=== PATIENT | male | born 1960 | race Caucasian/White ===

== ENCOUNTER 2016-11-12 | Outpatient (CLI) | payer BC | END 2016-11-12 13:12 | disposition critical access hospital (66) ==

== ENCOUNTER 2016-11-12 13:44 | Emergency (ER) | payer BC ==
[2016-11-12] MEDS ORDERED: TETANUS/DIPHTHERIA/PERTUSSIS 0.5 ML SYRINGE IM ONE ×2 (14:53→15:02)
[2016-11-12] MEDS ORDERED: IBUPROFEN 600 MG TABLET PO ONE (15:07)
[2016-11-12] MEDS ORDERED: IBUPROFEN 600 MG TABLET PO STA (15:20)
== END 2016-11-12 15:25 | disposition home or self-care (01) ==
DX: S61.243A Puncture wound with foreign body of left middle finger without damage to nail, initial encounter (principal); W45.0XXA Nail entering through skin, initial encounter; W20.8XXA Other cause of strike by thrown, projected or falling object, initial encounter; Y93.H3 Activity, building and construction; Y92.89 Other specified places as the place of occurrence of the external cause; Y99.0 Civilian activity done for income or pay; Z23 Encounter for immunization
CPT/HCPCS: 64455; 90471; 90715; 99282; 99283; A9270

== ENCOUNTER 2019-05-31 12:15 | Outpatient (CLI) | payer OTHER | END 2019-05-31 12:16 | disposition critical access hospital (66) | LOC: EMS 12:15 | PROVIDERS: ATTEND Surgery | DX: R09.89 Other specified symptoms and signs involving the circulatory and respiratory systems (principal) | CPT/HCPCS: A0425; A0429 ==

== ENCOUNTER 2019-05-31 12:49 | Emergency (ER) | payer BC, OTHER ==
[2019-05-31] MEDS ORDERED: hydroCHLOROthiazide 25 MG TABLET PO STA (13:12)
--- NOTE | 2019-05-31 13:13 | ED Physician Documentation ---
History of Present Illness - Stated complaint Stated Complaint: HIGH BP - Chief complaint Chief Complaint: Cardiac - History obtained from History obtained from: Patient - History of Present Illness Timing: Chronic (59-year-old gentleman with remote history of prostate cancer. He is always had high blood pressure but has never been under treatment for it. He says that as long as he can remember every time his blood pressures been checked it has been high. He says that currently he weighs about 225 pounds but several years ago got down to 165. Even then his blood pressure was about 160/80. He also has a history of prostate cancer 10 years ago with I think seeds, it is never been followed up upon. He does not have a regular doctor but has an appointment with a new physician on Tuesday. He denies chest pain, headaches, trouble breathing. 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%" function.) Review of Systems Constitutional: denies: Fever, Chills, Myalgias, Fatigue, Weight Loss Cardiac: denies: Chest pain / pressure, Palpitations, Pedal edema, Calf pain Respiratory: denies: Dyspnea, Cough GI: denies: Abdominal Pain PD PAST MEDICAL HISTORY - Past Medical History Cardiovascular: None Respiratory: None Endocrine/Autoimmune: None - Past Surgical History Past Surgical History: No - Present Medications Home Medications: Ambulatory Orders Medication Instructions Recorded Confirmed hydroCHLOROthiazide 25 mg PO DAILY #30 tablet 05/31/19 [Hydrochlorothiazide] - Allergies Allergies/Adverse Reactions: Allergies Allergy/AdvReac Type Severity Reaction Status Date / Time Sulfa (Sulfonamide Allergy Rash Verified 05/31/19 13:01 Antibiotics) - Social History Does the pt smoke?: No Smoking Status: Never smoker Does the pt drink ETOH?: No Does the pt have substance abuse?: No - Immunizations Immunizations are current?: No Immunizations: TDAP >10years/unknown - POLST Patient has POLST: Yes PD ED PE NORMAL - Vitals Vital signs reviewed: Yes - General General: Alert and oriented X 3, No acute distress - HEENT HEENT: PERRL, EOMI - Neck Neck: Supple, no meningeal sign, No bony TTP - Cardiac Cardiac: RRR, No murmur - Respiratory Respiratory: No respiratory distress, Clear bilaterally - Abdomen Abdomen: Non tender - Extremities Extremities: No edema, No calf tenderness / cord - Neuro Neuro: Alert and oriented X 3, Normal speech Results - Vitals Vitals: Vital Signs - 24 hr 05/31/19 05/31/19 12:58 13:24 Temperature 36.8 C Heart Rate 87 Respiratory 16 Rate Blood Pressure 235/128 H Blood Pressure 218/132 H [Right] O2 Saturation 97 Oxygen O2 Source Room air - EKG (time done) 1316 Rate: Rate (enter#) (86) Rhythm: NSR [place]: Normal Intervals: Normal [place] QRS: Normal Ischemia: Normal ST segments Computer interpretation: Agree with computer - Labs Labs: Laboratory Tests 05/31/19 05/31/19 05/31/19 13:20 13:24 13:24 WBC 6.5 RBC 5.43 Hgb 17.1 Hct 49.1 MCV 90.4 MCH 31.5 H MCHC 34.8 RDW 12.0 Plt Count 231 MPV 9.6 Neut # (Auto) 4.4 Lymph # (Auto) 1.4 L [place] # (Auto) 0.6 Eos # (Auto) 0.0 Baso # (Auto) 0.0 Absolute Nucleated RBC 0.00 Nucleated RBC % 0.0 Sodium 140 Potassium 4.1 Chloride 100 L Carbon Dioxide 30 Anion Gap 10.0 BUN 15 Creatinine 0.8 Estimated GFR (MDRD) 100 Glucose 108 H Calcium 9.5 Total Bilirubin 1.1 H AST 33 ALT 55 Alkaline Phosphatase 106 Total Protein 7.8 Albumin 4.5 Globulin 3.3 Albumin/Globulin Ratio 1.4 Lipase 33 PSA Screen Urine Color YELLOW Urine Clarity CLEAR Urine pH 6.5 Ur Specific [place] 1.020 Urine Protein 30 H Urine Glucose (UA) NEGATIVE Urine Ketones NEGATIVE Urine Occult Blood NEGATIVE Urine Nitrite NEGATIVE Urine Bilirubin NEGATIVE Urine Urobilinogen 0.2 (NORMAL) Ur Leukocyte Esterase NEGATIVE Urine RBC None Seen Urine WBC 0-3 Ur Squamous Epith Cells NONE SEEN Urine Bacteria None Seen Ur Microscopic Review INDICATED Urine Culture Comments NOT INDICATED 05/31/19 13:24 WBC RBC Hgb Hct MCV MCH MCHC RDW Plt Count MPV Neut # (Auto) Lymph # (Auto) [place] # (Auto) Eos # (Auto) Baso # (Auto) Absolute Nucleated RBC Nucleated RBC % Sodium Potassium Chloride Carbon Dioxide Anion Gap BUN Creatinine Estimated GFR (MDRD) Glucose Calcium Total Bilirubin AST ALT Alkaline Phosphatase Total Protein Albumin Globulin Albumin/Globulin Ratio Lipase PSA Screen 1.730 Urine Color Urine Clarity Urine pH Ur Specific [place] Urine Protein Urine Glucose (UA) Urine Ketones Urine Occult Blood Urine Nitrite Urine Bilirubin Urine Urobilinogen Ur Leukocyte Esterase Urine RBC Urine WBC Ur Squamous Epith Cells Urine Bacteria Ur Microscopic Review Urine Culture Comments PD MEDICAL DECISION MAKING - ED course ED course: 59-year-old gentleman with history of prostate cancer presents with asymptomatic but long-standing hypertension that is never been treated. He has been having trouble getting dental care because of it and that kind of necessitated the v isit today. He has no symptoms attributable to blood pressure. He is started on hydrochlorothiazide. His diagnostics are normal except for mild proteinuria. Departure - Departure Disposition: Home, Self Care Clinical Impression: Essential hypertension, History of prostate cancer Condition: Good Record reviewed to determine appropriate education?: Yes Instructions: ED Hypertension New Begin Tx Prescriptions: hydroCHLOROthiazide [Hydrochlorothiazide] 25 mg PO DAILY #30 tablet Comments: As discussed, we are starting some blood pressure medication today, but you will likely need multiple medications to control your blood pressure as high as it is. Take the medication daily and follow-up with your new doctor at [facility] on Tuesday. Return for new or worsening symptoms. Try to eat a low-salt diet. Exercise.
[2019-05-31 13:24] LABS: BILIRUBIN,URINE NEGATIVE (NEGATIVE); GLUCOSE, URINE (UA) NEGATIVE (NEGATIVE); KETONES,URINE (UA) NEGATIVE (NEGATIVE); LEUKOCYTE ESTERASE, URINE NEGATIVE (NEGATIVE); NITRITE,URINE NEGATIVE (NEGATIVE); OCCULT BLOOD,URINE NEGATIVE (NEGATIVE); PH,URINE 6.5 PH (5.0-7.5); PROTEIN,URINE 30 mg/dL (NEGATIVE); UROBILINOGEN,URINE 0.2 (NORMAL) E.U./dL (NORMAL)
[2019-05-31 13:30] LABS: CLARITY,URINE CLEAR (CLEAR)
[2019-05-31 13:32] LABS: BASOPHILS % (AUTO) 0.5 %; EOSINOPHILS % (AUTO) 0.5 %; HGB - HEMOGLOBIN 17.1 g/dL (14.0-18.0); LYMPHOCYTES # (AUTO) 1.4 10^3/uL (1.5-3.5); LYMPHOCYTES % (AUTO) 21.8 %; MEAN CORPUSCULAR HEMOGLOBIN 31.5 pg (27.0-31.0); MEAN CORPUSCULAR HGB CONC 34.8 g/dL (32.0-36.0); MEAN CORPUSCULAR VOLUME 90.4 fL (80.0-94.0); MEAN PLATELET VOLUME 9.6 fL (7.4-11.4); MONOCYTES # (AUTO) 0.6 10^3/uL (0.0-1.0); MONOCYTES % (AUTO) 8.7 %; NEUTROPHILS # (AUTO) 4.4 10^3/uL (1.5-6.6); PLT - PLATELET COUNT 231 10^3/uL (130-450); RED BLOOD COUNT 5.43 10^6/uL (4.70-6.10); WHITE BLOOD COUNT 6.5 x10^3/uL (4.8-10.8)
[2019-05-31 13:34] LABS: BACTERIA,URINE None Seen /HPF (None Seen); RBC,URINE None Seen /HPF (0-5); SQUAMOUS EPITHELIAL CELL,UR NONE SEEN (<= Few)
[2019-05-31 13:44] LABS: ALBUMIN 4.5 g/dL (3.2-5.5); ALBUMIN/GLOBULIN RATIO 1.4 (1.0-2.2); BILIRUBIN,TOTAL 1.1 mg/dL (0.2-1.0); CALCIUM 9.5 mg/dL (8.5-10.3); CREATININE 0.8 mg/dL (0.6-1.2); TOTAL PROTEIN 7.8 g/dL (6.7-8.2)
[2019-05-31 14:13] VITALS: BP 237/119
== END 2019-05-31 14:14 | disposition home or self-care (01) ==
LOC: EDUNIT# → ED 12:49
DX: I10 Essential (primary) hypertension (principal); R80.9 Proteinuria, unspecified; Z85.46 Personal history of malignant neoplasm of prostate
CPT/HCPCS: 36415; 80053; 81001; 83690; 84153; 85025; 93005; 99283; 99284; A9270; 81003; 87086